=== PATIENT | female | born 1965 | race Caucasian/White ===

== ENCOUNTER 2016-07-23 15:16 | Inpatient (IN) | payer OTHER ==
[~2016-07-23] VITALS: Ht 157.5 cm; Wt 61.5 kg
[~2016-07-23 15:16] MED LIST: ADVAIR 500/501 DISK IH; ADVAIR HFA120 INHALA IH; ALBUTEROL SULF8.5 GM IH; ALBUTEROL1.25 MG/3 IH; ALBUTEROL17 G1 IH; ALBUTEROL2.5 MG/3 M IH; ALLERGY MEDICAT25 M1 PO; ALPRAZOLAM0.25 M2 PO; ALPRAZOLAM1 MG PO; AMBIEN10 MG PO; ATIVAN0.5 MG PO; AZITHROMYCIN500 M1 PO; CATAPRES0.1 MG PO; CLONIDINE HCL0.1 MG PO; CLOPIDOGREL75 MG PO; DEPAKOTE500 MG PO; DRISDOL50000 UNIT PO; DUONEB 2.5-0.5 M3 ML IH; DUONEB3 ML IH; FLEXERIL10 MG PO; FLEXERIL5 MG PO; GABAPENTIN100 MG PO; GABAPENTIN400 MG PO; GABAPENTIN600 MG PO; GRALISE600 MG PO; KEFLEX500 MG PO; KLONOPIN0.5 M1 PO; LEVAQUIN500 MG PO; LEVAQUIN750 MG PO; MEDROL DOSEPAK4 MG PO; MIRTAZAPINE45 MG PO; MUCINEX600 MG PO; NEURONTIN300 MG PO; NEURONTIN400 MG PO; NEURONTIN600 MG PO; NEURONTIN800 MG PO; OXECTA5 MG PO; OXYCODONE HCL5 MG PO; PERCOCET 5/31 TABLET PO; PRAVASTATIN SOD80 MG PO; PREDNISONE10 M1 PO; PREDNISONE10 MG PO; PREDNISONE20 MG PO; PREDNISONE5 MG PO; PREDNISONE50 MG PO; PROAIR HFA8.5 GM IH; PROVENTIL,2.5 MG/3 M IH; REMERON45 MG PO; ROXICODONE5 MG PO; SAVELLA25 MG PO; SEROQUEL50 MG PO; SPIRIVA RESPIMAT4 GM IH; TRAZODONE HCL50 MG PO; TRILEPTAL300 MG PO; TUDORZA PRESS400 MCG IH; TYLENOL EXTRA500 M1 PO; TYLENOL EXTRA500 MG PO; TYLENOL REGULA325 MG PO; VENTOLIN HFA18 GM IH; VITAMIN D1000 INTUN PO; XANAX0.5 MG PO; XANAX1 MG PO; ZITHROMAX Z-PA250 MG PO
[2016-07-23 17:05] LABS: BASOPHIL COUNT 0.1 K/uL (0-0.1); EOSINOPHIL (%) 1.4 % (0-5); EOSINOPHIL COUNT 0.1 K/uL (0-0.3); HEMATOCRIT 40.3 % (36.0-46.0); IMMATURE GRANULOCYTE (%) 0.1 % (0.0-0.7); IMMATURE GRANULOCYTE COUNT 0.1 K/uL; LYMPHOCYTE COUNT 2.7 K/uL (1.0-2.8); MCH 32.9 PG (29.0-34.0); MCV 96.6 FL (83-99); MEAN PLAT.VOLUME 8.4 uM^3 (9.5-12.4); MONOCYTE (%) 9.6 % (3-12); MONOCYTE COUNT 0.7 K/uL (0-0.8); NEUTROPHIL (%) 50.5 % (45-76); NEUTROPHIL COUNT 3.7 K/uL (1.8-6.4); PLATELET COUNT 233 K/uL (156-360); RBC DIS.WIDTH-CV 13.1 % (11.8-14.6); RBC DIS.WIDTH-SD 44.6 % (39-53); RED BLOOD COUNT 4.17 M/uL (3.80-5.20); WHITE BLOOD COUNT 7.2 K/uL (4.1-10.2)
[2016-07-23 17:14] LABS: CHLORIDE 104 mEq/L (99-109); POTASSIUM 3.4 mEq/L (3.7-5.4); SODIUM 137 mEq/L (136-147)
[2016-07-23 17:16] LABS: GLUCOSE 93 mg/dL (70-99)
[2016-07-23 17:17] LABS: ANION GAP 10 MEQ/L (2-14)
[2016-07-23 17:18] LABS: TOTAL BILIRUBIN 0.5 mg/dL (0.0-1.0)
[2016-07-23 17:19] LABS: ALKALINE PHOSPHATASE 86 IU/L (3-129)
[2016-07-23 17:20] LABS: GFR ESTIMATE (CALCULATED) > 59 mL/min/
[2016-07-23 17:21] LABS: UREA NITROGEN (BUN) 12 mg/dL (9-23)
[2016-07-23 17:26] LABS: TROP-I INTERPRETATION NEGATIVE; TROPONIN-I < 0.01 ng/mL (0.0-0.30)
[2016-07-23] MEDS ORDERED: VENTOLIN HFA18 GM IH (19:08)
[2016-07-23] MEDS ORDERED: MIRTAZAPINE45 MG PO (19:09)
[2016-07-23 21:47] VITALS: BP 127/81
[2016-07-24 00:08] VITALS: BP 116/68
[2016-07-24 04:44] VITALS: BP 109/66
[2016-07-24 08:00] VITALS: BP 130/75
[2016-07-24 11:44] LABS: METH RESISTANT S AUREUS PCR NEGATIVE (NEGATIVE)
[2016-07-24 11:48] LABS: PROBE CHECK PASS; SPECIMEN PROCESSING CONTROL PASS
[2016-07-24 12:00] VITALS: BP 122/63
[2016-07-24 16:00] VITALS: BP 107/55
[2016-07-24 21:57] VITALS: BP 101/57
[2016-07-25 00:17] VITALS: BP 105/62
[2016-07-25 04:56] VITALS: BP 118/69
[2016-07-25 08:12] VITALS: BP 112/60
[2016-07-25 12:00] VITALS: BP 122/59
[2016-07-25 15:58] VITALS: BP 104/61
[2016-07-25 20:02] VITALS: BP 121/61
[2016-07-26 05:55] VITALS: BP 95/60
[2016-07-26 08:00] VITALS: BP 107/81
[2016-07-26 11:15] VITALS: BP 100/57
[2016-07-26 14:17] VITALS: BP 123/84
[2016-07-26 23:59] VITALS: BP 106/62
[2016-07-27 07:09] LABS: HEMATOCRIT 43.6 % (36.0-46.0); MCH 32.6 PG (29.0-34.0); MCHC 32.8 G/DL (30.0-36.0); MCV 99.5 FL (83-99); PLATELET COUNT 257 K/uL (156-360); RBC DIS.WIDTH-SD 47.3 % (39-53); RED BLOOD COUNT 4.38 M/uL (3.80-5.20); WHITE BLOOD COUNT 9.5 K/uL (4.1-10.2)
[2016-07-27 07:27] LABS: ANION GAP 6 MEQ/L (2-14); CHLORIDE 107 MEQ/L (99-109); GFR ESTIMATE (CALCULATED) > 59 mL/min/; GLUCOSE 137 mg/dL (70-99); MAGNESIUM 2.3 mg/dl (1.3-2.7); SAMPLE HEMOLYSIS CHECK 0; SAMPLE ICTERIC CHECK 0; SAMPLE LIPEMIA CHECK 0; SODIUM 140 MEQ/L (136-147)
[2016-07-27 07:30] LABS: POTASSIUM 4.1 MEQ/L (3.7-5.4); UREA NITROGEN (BUN) 22 mg/dL (9-23)
[2016-07-27 08:44] VITALS: BP 123/80
[2016-07-27 16:08] VITALS: BP 126/66
[2016-07-28] VITALS: BP 137/88
[2016-07-28 07:58] VITALS: BP 136/89
[2016-07-28 11:32] VITALS: BP 110/67
[2016-07-28] MEDS ORDERED: PREDNISONE10 MG PO (12:51)
[2016-07-28] MEDS ORDERED: SPIRIVA RESPIMAT4 GM IH (12:51)
[2016-07-28] MEDS ORDERED: MORPHINE SULFAT15 M1 PO (12:51)
[2016-07-28] MEDS ORDERED: ADVAIR HFA120 INHALA IH (12:51)
[2016-07-28] MEDS ORDERED: INCRUSE ELLI62.5 MCG IH (14:36)
== END 2016-07-28 16:31 | disposition home health service (06) | DRG 191 ==
LOC: EME 15:16 → EDOF 20:20 → 5WEST 20:20 → EDOF 20:20 → 5WEST 21:35 → 5SOUTH 07-24 12:02 → 5WEST 07-24 12:02 → 5SOUTH 07-26 14:01
PROVIDERS: Emergency Medicine; Hospitalist; Internal Medicine
DX: J44.0 Chronic obstructive pulmonary disease with (acute) lower respiratory infection (principal); J96.10 Chronic respiratory failure, unspecified whether with hypoxia or hypercapnia; J44.1 Chronic obstructive pulmonary disease with (acute) exacerbation; Z91.19 Patient's noncompliance with other medical treatment and regimen; G89.29 Other chronic pain; G40.909 Epilepsy, unspecified, not intractable, without status epilepticus; F11.20 Opioid dependence, uncomplicated; F17.210 Nicotine dependence, cigarettes, uncomplicated; F41.9 Anxiety disorder, unspecified; F32.9 Major depressive disorder, single episode, unspecified; Z86.73 Personal history of transient ischemic attack (TIA), and cerebral infarction without residual deficits; J20.9 Acute bronchitis, unspecified; E87.6 Hypokalemia; Z59.0 Homelessness
CPT/HCPCS: 71010; 80048; 80053; 83735; 83880; 84484; 85025; 85027; 87641; 93005; 94640; 94640 76; 94644; 94799; 99202; 99281; 99285; G0378; J1644; J2920; J2930; J7512; J7644

== ENCOUNTER 2016-09-26 09:36 | Emergency (ER) | payer OTHER ==
[~2016-09-26] VITALS: Ht 157.5 cm; Wt 68.1 kg
[~2016-09-26 09:36] MED LIST changes: +INCRUSE ELLI62.5 MCG IH; +MORPHINE SULFAT15 M1 PO
[2016-09-26 10:20] LABS: HEMATOCRIT 44.8 % (36.0-46.0); MCH 31.5 PG (29.0-34.0); MCHC 32.6 G/DL (30.0-36.0); MCV 96.6 FL (83-99); MEAN PLAT.VOLUME 8.2 uM^3 (9.5-12.4); PLATELET COUNT 240 K/uL (156-360); RED BLOOD COUNT 4.64 M/uL (3.80-5.20); WHITE BLOOD COUNT 7.2 K/uL (4.1-10.2)
[2016-09-26 10:28] LABS: CHLORIDE 103 mEq/L (99-109); POTASSIUM 3.9 mEq/L (3.7-5.4); SODIUM 140 mEq/L (136-147)
[2016-09-26 10:30] LABS: GLUCOSE 100 mg/dL (70-99)
[2016-09-26 10:31] LABS: ANION GAP 11 MEQ/L (2-14)
[2016-09-26 10:34] LABS: GFR ESTIMATE (CALCULATED) > 59 mL/min/
[2016-09-26 10:35] LABS: UREA NITROGEN (BUN) 10 mg/dL (9-23)
[2016-09-26] MEDS ORDERED: PREDNISONE50 MG PO (11:08)
[2016-09-26] MEDS ORDERED: ZITHROMAX Z-PA250 MG PO (11:08)
[2016-09-26] MEDS ORDERED: PROVENTIL HFA6.7 GM IH (11:09)
[2016-09-26 12:02] VITALS: BP 132/76
== END 2016-09-26 12:04 | disposition home or self-care (01) ==
LOC: EME → EDBD 09:36 → EME 09:36
PROVIDERS: Emergency Medicine
DX: J44.1 Chronic obstructive pulmonary disease with (acute) exacerbation (principal); J40 Bronchitis, not specified as acute or chronic; F17.200 Nicotine dependence, unspecified, uncomplicated; J45.909 Unspecified asthma, uncomplicated; Z87.442 Personal history of urinary calculi; Z86.73 Personal history of transient ischemic attack (TIA), and cerebral infarction without residual deficits; Z85.41 Personal history of malignant neoplasm of cervix uteri; Z88.2 Allergy status to sulfonamides; Z88.6 Allergy status to analgesic agent; Z88.5 Allergy status to narcotic agent; Z88.8 Allergy status to other drugs, medicaments and biological substances
CPT/HCPCS: 71020; 80048; 85027; 93005; 94640; 99281; 99284; J2930; J7644

== ENCOUNTER 2016-11-17 08:35 | Inpatient (IN) | payer OTHER ==
[~2016-11-17] VITALS: Ht 162.6 cm; Wt 68.3 kg
[~2016-11-17 08:35] MED LIST changes: +PROVENTIL HFA6.7 GM IH
[2016-11-17 09:02] LABS: BASOPHIL COUNT 0.1 K/uL (0-0.1); EOSINOPHIL (%) 0.3 % (0-5); HEMATOCRIT 45.1 % (36.0-46.0); IMMATURE GRANULOCYTE (%) 0.3 % (0.0-0.7); INSTRUMENT ABS NEUTROPHIL CT 4.6 K/uL; LYMPHOCYTE COUNT 3.5 K/uL (1.0-2.8); MCH 31.7 PG (29.0-34.0); MCHC 33.9 G/DL (30.0-36.0); MCV 93.6 FL (83-99); MEAN PLAT.VOLUME 8.4 uM^3 (9.5-12.4); MONOCYTE (%) 9.1 % (3-12); MONOCYTE COUNT 0.8 K/uL (0-0.8); NEUTROPHIL (%) 51.1 % (45-76); NEUTROPHIL COUNT 4.6 K/uL (1.8-6.4); PLATELET COUNT 307 K/uL (156-360); RBC DIS.WIDTH-CV 12.6 % (11.8-14.6); RBC DIS.WIDTH-SD 43.5 % (39-53); RED BLOOD COUNT 4.82 M/uL (3.80-5.20); WHITE BLOOD COUNT 9.1 K/uL (4.1-10.2)
[2016-11-17 09:12] LABS: PTT 23.6 (25-32)
[2016-11-17 09:14] LABS: CHLORIDE 95 mEq/L (99-109); POTASSIUM 4.2 mEq/L (3.7-5.4); SODIUM 137 mEq/L (136-147)
[2016-11-17 09:16] LABS: GLUCOSE 137 mg/dL (70-99)
[2016-11-17 09:17] LABS: ANION GAP 21 MEQ/L (2-14)
[2016-11-17 09:19] LABS: GFR ESTIMATE (CALCULATED) > 59 mL/min/
[2016-11-17 09:20] LABS: UREA NITROGEN (BUN) 12 mg/dL (9-23)
[2016-11-17 09:24] LABS: TROP-I INTERPRETATION NEGATIVE; TROPONIN-I 0.02 ng/mL (0.0-0.30)
[2016-11-17 14:49] LABS: METH RESISTANT S AUREUS PCR NEGATIVE (NEGATIVE); PROBE CHECK PASS; SPECIMEN PROCESSING CONTROL PASS
[2016-11-17 15:15] VITALS: BP 127/88
[2016-11-17 16:08] LABS: TROP-I INTERPRETATION NEGATIVE; TROPONIN-I < 0.01 ng/mL (0.0-0.30)
[2016-11-17 19:10] VITALS: BP 121/64
[2016-11-17 22:07] LABS: TROP-I INTERPRETATION NEGATIVE; TROPONIN-I < 0.01 ng/mL (0.0-0.30)
[2016-11-17 23:29] VITALS: BP 132/58
[2016-11-18 03:15] VITALS: BP 121/67
[2016-11-18 07:19] VITALS: BP 114/72
[2016-11-18 11:10] VITALS: BP 119/72
[2016-11-18 15:25] VITALS: BP 121/94
[2016-11-18 19:23] VITALS: BP 109/74
[2016-11-18 23:25] VITALS: BP 115/72
[2016-11-19 03:25] VITALS: BP 124/76
[2016-11-19 08:34] VITALS: BP 130/78
[2016-11-19 12:27] VITALS: BP 116/77
[2016-11-19 17:06] VITALS: BP 130/96
[2016-11-19 19:22] VITALS: BP 136/87
[2016-11-20] VITALS (7 sets, daily range): BP systolic 113–135; BP diastolic 71–100
[2016-11-21 03:27] VITALS: BP 129/81
[2016-11-21 05:26] LABS: EOSINOPHIL (%) 0 % (0-5); HEMATOCRIT 43.1 % (36.0-46.0); IMMATURE GRANULOCYTE (%) 1.6 % (0.0-0.7); IMMATURE GRANULOCYTE COUNT 0.1 K/uL; INSTRUMENT ABS NEUTROPHIL CT 7.1 K/uL; LYMPHOCYTE COUNT 0.7 K/uL (1.0-2.8); MCH 32.3 PG (29.0-34.0); MCHC 32.9 G/DL (30.0-36.0); MONOCYTE (%) 5.1 % (3-12); MONOCYTE COUNT 0.4 K/uL (0-0.8); NEUTROPHIL (%) 85.4 % (45-76); NEUTROPHIL COUNT 7.1 K/uL (1.8-6.4); RBC DIS.WIDTH-CV 12.6 % (11.8-14.6); RBC DIS.WIDTH-SD 45.5 % (39-53); WHITE BLOOD COUNT 8.4 K/uL (4.1-10.2)
[2016-11-21 05:44] LABS: ANION GAP 8 MEQ/L (2-14); CHLORIDE 100 MEQ/L (99-109); GFR ESTIMATE (CALCULATED) > 59 mL/min/; GLUCOSE 169 mg/dL (70-99); POTASSIUM 4.6 MEQ/L (3.7-5.4); SAMPLE HEMOLYSIS CHECK 2; SAMPLE ICTERIC CHECK 0; SAMPLE LIPEMIA CHECK 0; SODIUM 137 MEQ/L (136-147)
[2016-11-21 05:49] LABS: UREA NITROGEN (BUN) 21 mg/dL (9-23)
[2016-11-21 06:51] LABS: PLAT.SUFFICIENCY ADEQUATE
[2016-11-21 07:03] VITALS: BP 138/98
[2016-11-21 07:22] LABS: PLATELET COUNT 157 K/uL (156-360)
[2016-11-21 10:35] VITALS: BP 134/77
[2016-11-21 15:00] VITALS: BP 125/76
[2016-11-21 23:58] VITALS: BP 123/86
[2016-11-22 07:11] VITALS: BP 133/86
[2016-11-22 07:45] LABS: EOSINOPHIL (%) 0 % (0-5); HEMATOCRIT 42.9 % (36.0-46.0); IMMATURE GRANULOCYTE (%) 4.2 % (0.0-0.7); IMMATURE GRANULOCYTE COUNT 0.4 K/uL; INSTRUMENT ABS NEUTROPHIL CT 6.8 K/uL; LYMPHOCYTE COUNT 1.1 K/uL (1.0-2.8); MCH 31.5 PG (29.0-34.0); MCHC 32.6 G/DL (30.0-36.0); MCV 96.6 FL (83-99); MONOCYTE (%) 7.9 % (3-12); MONOCYTE COUNT 0.7 K/uL (0-0.8); NEUTROPHIL (%) 75.3 % (45-76); NEUTROPHIL COUNT 6.8 K/uL (1.8-6.4); PLATELET COUNT 186 K/uL (156-360); RBC DIS.WIDTH-CV 12.6 % (11.8-14.6); RBC DIS.WIDTH-SD 45.1 % (39-53); RED BLOOD COUNT 4.44 M/uL (3.80-5.20); WHITE BLOOD COUNT 9.1 K/uL (4.1-10.2)
[2016-11-22 08:43] LABS: ANION GAP 8 MEQ/L (2-14); CHLORIDE 98 MEQ/L (99-109); GFR ESTIMATE (CALCULATED) > 59 mL/min/; GLUCOSE 114 mg/dL (70-99); POTASSIUM 4.4 MEQ/L (3.7-5.4); SAMPLE HEMOLYSIS CHECK 0; SAMPLE ICTERIC CHECK 0; SAMPLE LIPEMIA CHECK 0; SODIUM 136 MEQ/L (136-147); UREA NITROGEN (BUN) 19 mg/dL (9-23)
[2016-11-22 15:36] VITALS: BP 136/90
[2016-11-22 23:15] VITALS: BP 139/81
[2016-11-23 07:40] VITALS: BP 125/82
[2016-11-23] MEDS ORDERED: AMOX TR-K CLV1 EAC4 PO (11:10)
[2016-11-23] MEDS ORDERED: GABAPENTIN600 MG PO (11:10)
[2016-11-23] MEDS ORDERED: ALPRAZOLAM0.5 MG PO (11:10)
[2016-11-23] MEDS ORDERED: CITALOPRAM HBR10 MG PO (11:10)
[2016-11-23] MEDS ORDERED: PREDNISONE20 MG PO (11:10)
== END 2016-11-23 14:29 | disposition home or self-care (01) | DRG 190 ==
LOC: EME → EDBD 08:35 → EDOF 10:10 → 5EAST 10:10
PROVIDERS: Emergency Medicine; Hospitalist; Internal Medicine
DX: J44.1 Chronic obstructive pulmonary disease with (acute) exacerbation (principal); J96.01 Acute respiratory failure with hypoxia; F11.20 Opioid dependence, uncomplicated; F33.9 Major depressive disorder, recurrent, unspecified; F17.210 Nicotine dependence, cigarettes, uncomplicated; G40.909 Epilepsy, unspecified, not intractable, without status epilepticus; M79.7 Fibromyalgia; G43.909 Migraine, unspecified, not intractable, without status migrainosus; G89.4 Chronic pain syndrome; J45.909 Unspecified asthma, uncomplicated; R00.0 Tachycardia, unspecified; Z91.14 Patient's other noncompliance with medication regimen; Z88.2 Allergy status to sulfonamides; Z71.6 Tobacco abuse counseling; Z87.442 Personal history of urinary calculi; Z87.820 Personal history of traumatic brain injury; Z85.41 Personal history of malignant neoplasm of cervix uteri; Z86.73 Personal history of transient ischemic attack (TIA), and cerebral infarction without residual deficits; Z82.49 Family history of ischemic heart disease and other diseases of the circulatory system; Z83.6 Family history of other diseases of the respiratory system; Z08 Encounter for follow-up examination after completed treatment for malignant neoplasm; Z09 Encounter for follow-up examination after completed treatment for conditions other than malignant neoplasm
CPT/HCPCS: 71010; 80048; 84484; 85025; 85610; 85730; 87641; 93005; 94640; 94640 76; 94799; 99202; 99281; 99285; J0171; J1100; J1650; J2270; J2405; J2930; J3475; J7644

== ENCOUNTER 2016-12-05 12:50 | Inpatient (IN) | payer OTHER ==
[~2016-12-05] VITALS: Ht 157.5 cm; Wt 67.0 kg
[~2016-12-05 12:50] MED LIST changes: +ALPRAZOLAM0.5 MG PO; +AMOX TR-K CLV1 EAC4 PO; +CITALOPRAM HBR10 MG PO
[2016-12-05 13:56] LABS: HEMATOCRIT 42.9 % (36.0-46.0); MCH 31.9 PG (29.0-34.0); MCHC 32.9 G/DL (30.0-36.0); MCV 97.1 FL (83-99); MEAN PLAT.VOLUME 8.5 uM^3 (9.5-12.4); PLATELET COUNT 267 K/uL (156-360); RBC DIS.WIDTH-CV 13.8 % (11.8-14.6); RBC DIS.WIDTH-SD 48.6 % (39-53); RED BLOOD COUNT 4.42 M/uL (3.80-5.20); WHITE BLOOD COUNT 8.7 K/uL (4.1-10.2)
[2016-12-05 13:57] LABS: CHLORIDE 106 mEq/L (99-109); POTASSIUM 4.2 mEq/L (3.7-5.4); SODIUM 140 mEq/L (136-147)
[2016-12-05 13:58] LABS: GLUCOSE 92 mg/dL (70-99)
[2016-12-05 14:00] LABS: ANION GAP 11 MEQ/L (2-14)
[2016-12-05 14:02] LABS: GFR ESTIMATE (CALCULATED) > 59 mL/min/
[2016-12-05 14:03] LABS: UREA NITROGEN (BUN) 11 mg/dL (9-23)
[2016-12-05 14:08] LABS: TROP-I INTERPRETATION NEGATIVE; TROPONIN-I 0.02 ng/mL (0.0-0.30)
[2016-12-05 15:11] LABS: CARBON DIOXIDE (BICARBONATE) 29.8 MEQ/L (20-31)
[2016-12-05] MEDS ORDERED: XANAX1 MG PO (16:08)
[2016-12-05 22:25] VITALS: BP 125/75
[2016-12-06 04:50] VITALS: BP 130/88
[2016-12-06 07:40] VITALS: BP 107/71
[2016-12-06 11:58] VITALS: BP 106/80
[2016-12-06 16:02] VITALS: BP 129/74
[2016-12-06 19:51] VITALS: BP 120/22
[2016-12-06 23:38] VITALS: BP 124/68
[2016-12-07 04:19] VITALS: BP 115/65
[2016-12-07 06:26] LABS: ANION GAP 8 MEQ/L (2-14); CHLORIDE 107 MEQ/L (99-109); GFR ESTIMATE (CALCULATED) > 59 mL/min/; HDL CHOLESTEROL 100 MG/DL (Desirable>=50); LDL CHOLESTEROL 143 mg/dL (Desirable<100); NON-HDL CHOLESTEROL 153 mg/dL (Desirable<160); POTASSIUM 4.7 MEQ/L (3.7-5.4); SAMPLE HEMOLYSIS CHECK 0; SAMPLE ICTERIC CHECK 0; SAMPLE LIPEMIA CHECK 0; SODIUM 141 MEQ/L (136-147); TOTAL CHOLESTEROL 253 mg/dL (Desirable<200); TRIGLYCERIDES 51 MG/DL (Normal: <150); UREA NITROGEN (BUN) 16 mg/dL (9-23)
[2016-12-07 06:30] LABS: GLUCOSE 142 mg/dL (70-99)
[2016-12-07 06:49] LABS: EOSINOPHIL (%) 0 % (0-5); HEMATOCRIT 37.4 % (36.0-46.0); IMMATURE GRANULOCYTE (%) 1.3 % (0.0-0.7); IMMATURE GRANULOCYTE COUNT 0.2 K/uL; INSTRUMENT ABS NEUTROPHIL CT 11.8 K/uL; LYMPHOCYTE COUNT 0.8 K/uL (1.0-2.8); MCH 32.3 PG (29.0-34.0); MCHC 31.8 G/DL (30.0-36.0); MEAN PLAT.VOLUME 8.6 uM^3 (9.5-12.4); MONOCYTE (%) 4.9 % (3-12); MONOCYTE COUNT 0.7 K/uL (0-0.8); NEUTROPHIL (%) 88.1 % (45-76); NEUTROPHIL COUNT 11.8 K/uL (1.8-6.4); PLATELET COUNT 236 K/uL (156-360); RBC DIS.WIDTH-CV 13.9 % (11.8-14.6); RBC DIS.WIDTH-SD 52.2 % (39-53); RED BLOOD COUNT 3.68 M/uL (3.80-5.20)
[2016-12-07 06:57] LABS: MCV 101.6 FL (83-99); WHITE BLOOD COUNT 13.4 K/uL (4.1-10.2)
[2016-12-07 07:59] VITALS: BP 116/74
[2016-12-07 11:52] VITALS: BP 108/67
[2016-12-07 16:01] VITALS: BP 132/77
[2016-12-07 20:01] VITALS: BP 115/75
[2016-12-07 23:43] VITALS: BP 137/78
[2016-12-08 05:20] VITALS: BP 116/70
[2016-12-08 05:58] LABS: EOSINOPHIL (%) 0.1 % (0-5); HEMATOCRIT 39.8 % (36.0-46.0); IMMATURE GRANULOCYTE (%) 0.8 % (0.0-0.7); IMMATURE GRANULOCYTE COUNT 0.1 K/uL; INSTRUMENT ABS NEUTROPHIL CT 7.1 K/uL; LYMPHOCYTE COUNT 2.2 K/uL (1.0-2.8); MCH 32.1 PG (29.0-34.0); MCHC 31.4 G/DL (30.0-36.0); MCV 102.1 FL (83-99); MEAN PLAT.VOLUME 8.6 uM^3 (9.5-12.4); MONOCYTE (%) 7.7 % (3-12); MONOCYTE COUNT 0.8 K/uL (0-0.8); NEUTROPHIL (%) 69.6 % (45-76); NEUTROPHIL COUNT 7.1 K/uL (1.8-6.4); PLATELET COUNT 243 K/uL (156-360); RBC DIS.WIDTH-CV 14.2 % (11.8-14.6); WHITE BLOOD COUNT 10.2 K/uL (4.1-10.2)
[2016-12-08 07:09] LABS: ANION GAP 7 MEQ/L (2-14); CHLORIDE 108 MEQ/L (99-109); GFR ESTIMATE (CALCULATED) > 59 mL/min/; GLUCOSE 131 mg/dL (70-99); POTASSIUM 4.1 MEQ/L (3.7-5.4); SAMPLE HEMOLYSIS CHECK 0; SAMPLE ICTERIC CHECK 0; SAMPLE LIPEMIA CHECK 0; SODIUM 142 MEQ/L (136-147); UREA NITROGEN (BUN) 19 mg/dL (9-23)
[2016-12-08 07:57] VITALS: BP 120/84
[2016-12-08] MEDS ORDERED: GUAIFENESI100 MG/5 M PO (12:12)
[2016-12-08] MEDS ORDERED: ATORVASTATIN CA40 MG PO (12:12)
[2016-12-08] MEDS ORDERED: PREDNISONE20 MG PO (12:12)
[2016-12-08] MEDS ORDERED: SPIRIVA RESPIMAT4 GM IH (12:12)
[2016-12-08] MEDS ORDERED: CEFTIN500 MG PO (12:16)
[2016-12-08] MEDS ORDERED: GABAPENTIN600 MG PO (12:23)
[2016-12-08] MEDS ORDERED: VENTOLIN HFA18 GM IH (12:50)
[2016-12-08] MEDS ORDERED: PROVENTIL,2.5 MG/3 M IH (13:17)
== END 2016-12-08 13:35 | disposition home or self-care (01) | DRG 190 ==
LOC: EME 12:50 → EDOF 16:08 → EME 16:08 → EDOF 18:10 → 5SOUTH 18:10
PROVIDERS: Emergency Medicine; Internal Medicine
DX: J44.1 Chronic obstructive pulmonary disease with (acute) exacerbation (principal); J44.0 Chronic obstructive pulmonary disease with (acute) lower respiratory infection; J96.01 Acute respiratory failure with hypoxia; Z99.81 Dependence on supplemental oxygen; Z86.73 Personal history of transient ischemic attack (TIA), and cerebral infarction without residual deficits; G40.909 Epilepsy, unspecified, not intractable, without status epilepticus; G89.4 Chronic pain syndrome; F41.9 Anxiety disorder, unspecified; F33.9 Major depressive disorder, recurrent, unspecified; F17.210 Nicotine dependence, cigarettes, uncomplicated; J20.9 Acute bronchitis, unspecified; R00.0 Tachycardia, unspecified; G43.909 Migraine, unspecified, not intractable, without status migrainosus; J45.909 Unspecified asthma, uncomplicated; M79.7 Fibromyalgia; Z87.442 Personal history of urinary calculi
CPT/HCPCS: 71020; 80048; 80061; 82803; 83605; 83880; 84484; 85025; 85027; 85379; 87040; 93005; 94640; 94640 76; 94760; 94799; 99202; 99281; 99285; J1100; J1644; J2930; J7030; J7512

== ENCOUNTER 2016-12-21 14:12 | Emergency (ER) | payer OTHER ==
[~2016-12-21] VITALS: Ht 157.5 cm; Wt 69.8 kg
[~2016-12-21 14:12] MED LIST changes: +ATORVASTATIN CA40 MG PO; +CEFTIN500 MG PO; +GUAIFENESI100 MG/5 M PO
[2016-12-21] MEDS ORDERED: GABAPENTIN600 MG PO (16:08)
[2016-12-21 16:38] VITALS: BP 124/87
== END 2016-12-21 16:46 | disposition home or self-care (01) ==
LOC: EME 14:12
DX: R56.9 Unspecified convulsions (principal); Z91.14 Patient's other noncompliance with medication regimen; F17.200 Nicotine dependence, unspecified, uncomplicated; Z87.442 Personal history of urinary calculi; Z86.73 Personal history of transient ischemic attack (TIA), and cerebral infarction without residual deficits
CPT/HCPCS: 99281; 99283

== ENCOUNTER 2016-12-29 06:49 | Emergency (ER) | payer OTHER ==
[~2016-12-29] VITALS: Ht 160 cm; Wt 69.3 kg
[2016-12-29 08:20] LABS: CHLORIDE 107 mEq/L (99-109); POTASSIUM 3.7 mEq/L (3.7-5.4); SODIUM 142 mEq/L (136-147)
[2016-12-29 08:21] LABS: GLUCOSE 109 mg/dL (70-99); WHITE BLOOD COUNT ND K/uL (4.1-10.2)
[2016-12-29 08:22] LABS: HEMATOCRIT ND % (36.0-46.0); MCH ND PG (29.0-34.0); MCHC ND G/DL (30.0-36.0); MCV ND FL (83-99); NRBC (%) ND /100 WBC (0-0); RBC DIS.WIDTH-CV ND % (11.8-14.6); RBC DIS.WIDTH-SD ND % (39-53); RED BLOOD COUNT ND M/uL (3.80-5.20)
[2016-12-29 08:23] LABS: ANION GAP 10 MEQ/L (2-14)
[2016-12-29 08:25] LABS: GFR ESTIMATE (CALCULATED) > 59 mL/min/
[2016-12-29 08:26] LABS: UREA NITROGEN (BUN) 7 mg/dL (9-23)
[2016-12-29 09:09] LABS: BASOPHIL COUNT 0.1 K/uL (0-0.1); EOSINOPHIL (%) 0.9 % (0-5); EOSINOPHIL COUNT 0.1 K/uL (0-0.3); HEMATOCRIT 42.1 % (36.0-46.0); IMMATURE GRANULOCYTE (%) 0.5 % (0.0-0.7); LYMPHOCYTE COUNT 1.1 K/uL (1.0-2.8); MCH 32.3 PG (29.0-34.0); MCHC 33.5 G/DL (30.0-36.0); MEAN PLAT.VOLUME 8.6 uM^3 (9.5-12.4); MONOCYTE (%) 5.5 % (3-12); MONOCYTE COUNT 0.3 K/uL (0-0.8); NEUTROPHIL (%) 72.7 % (45-76); PLATELET COUNT 236 K/uL (156-360); RBC DIS.WIDTH-CV 13.3 % (11.8-14.6); RBC DIS.WIDTH-SD 47.7 % (39-53); RED BLOOD COUNT 4.36 M/uL (3.80-5.20); WHITE BLOOD COUNT 5.5 K/uL (4.1-10.2)
[2016-12-29 09:10] LABS: MCV 96.6 FL (83-99)
[2016-12-29] MEDS ORDERED: ZITHROMAX Z-PA250 MG PO (09:22)
[2016-12-29] MEDS ORDERED: PREDNISONE50 MG PO (09:22)
[2016-12-29 09:56] VITALS: BP 126/90
== END 2016-12-29 09:59 | disposition home or self-care (01) ==
LOC: EME → EDBD 06:49 → EME 09:59
PROVIDERS: Emergency Medicine
DX: J44.1 Chronic obstructive pulmonary disease with (acute) exacerbation (principal); M79.7 Fibromyalgia; F31.9 Bipolar disorder, unspecified; B19.10 Unspecified viral hepatitis B without hepatic coma; Z87.442 Personal history of urinary calculi; Z86.73 Personal history of transient ischemic attack (TIA), and cerebral infarction without residual deficits; Z85.41 Personal history of malignant neoplasm of cervix uteri; F17.200 Nicotine dependence, unspecified, uncomplicated
CPT/HCPCS: 71010; 80048; 85025; 85025 91; 94640; 99281; 99285; J2930; J7644

== ENCOUNTER 2017-01-16 12:31 | Emergency (ER) | payer OTHER ==
[~2017-01-16] VITALS: Ht 157.5 cm; Wt 69.0 kg
[2017-01-16 13:00] LABS: HEMATOCRIT 41.9 % (36.0-46.0); MCH 32.5 PG (29.0-34.0); MCHC 32.9 G/DL (30.0-36.0); MCV 98.8 FL (83-99); MEAN PLAT.VOLUME 8.4 uM^3 (9.5-12.4); PLATELET COUNT 209 K/uL (156-360); RBC DIS.WIDTH-CV 14.2 % (11.8-14.6); RBC DIS.WIDTH-SD 51.3 % (39-53); RED BLOOD COUNT 4.24 M/uL (3.80-5.20); WHITE BLOOD COUNT 6.1 K/uL (4.1-10.2)
[2017-01-16 13:16] LABS: CHLORIDE 98 mEq/L (99-109); POTASSIUM 4.4 mEq/L (3.7-5.4); SODIUM 136 mEq/L (136-147)
[2017-01-16 13:18] LABS: GLUCOSE 93 mg/dL (70-99)
[2017-01-16 13:19] LABS: ANION GAP 10 MEQ/L (2-14)
[2017-01-16 13:22] LABS: GFR ESTIMATE (CALCULATED) > 59 mL/min/
[2017-01-16 13:23] LABS: UREA NITROGEN (BUN) 9 mg/dL (9-23)
[2017-01-16 13:24] LABS: TROP-I INTERPRETATION NEGATIVE; TROPONIN-I < 0.01 ng/mL (0.0-0.30)
[2017-01-16 13:30] LABS: QUANTITATIVE HCG < 4.0 MIU/ML
[2017-01-16] MEDS ORDERED: PREDNISONE50 MG PO (13:36)
[2017-01-16] MEDS ORDERED: ZITHROMAX Z-PA250 MG PO (13:36)
[2017-01-16 14:08] VITALS: BP 113/84
== END 2017-01-16 14:17 | disposition home or self-care (01) ==
LOC: EME 12:31
PROVIDERS: Emergency Medicine
DX: J44.1 Chronic obstructive pulmonary disease with (acute) exacerbation (principal); J45.909 Unspecified asthma, uncomplicated; Z87.891 Personal history of nicotine dependence; Z86.73 Personal history of transient ischemic attack (TIA), and cerebral infarction without residual deficits
CPT/HCPCS: 71010; 80048; 84484; 84702; 85027; 94640; 99202; 99281; 99285; J7512; J7644

== ENCOUNTER 2017-04-29 12:21 | Emergency (ER) | payer OTHER ==
[~2017-04-29] VITALS: Ht 160 cm; Wt 62.2 kg
[2017-04-29 13:20] LABS: BASOPHIL COUNT 0.1 K/uL (0-0.1); EOSINOPHIL (%) 1.6 % (0-5); EOSINOPHIL COUNT 0.1 K/uL (0-0.3); HEMATOCRIT 44.1 % (36.0-46.0); IMMATURE GRANULOCYTE (%) 0.5 % (0.0-0.7); INSTRUMENT ABS NEUTROPHIL CT 3.6 K/uL; LYMPHOCYTE COUNT 1.7 K/uL (1.0-2.8); MCH 31.1 PG (29.0-34.0); MCHC 32.7 G/DL (30.0-36.0); MCV 95.2 FL (83-99); MEAN PLAT.VOLUME 8.7 uM^3 (9.5-12.4); MONOCYTE (%) 11.5 % (3-12); MONOCYTE COUNT 0.7 K/uL (0-0.8); NEUTROPHIL (%) 58.3 % (45-76); NEUTROPHIL COUNT 3.6 K/uL (1.8-6.4); PLATELET COUNT 192 K/uL (156-360); RBC DIS.WIDTH-CV 13.3 % (11.8-14.6); RED BLOOD COUNT 4.63 M/uL (3.80-5.20); WHITE BLOOD COUNT 6.2 K/uL (4.1-10.2)
[2017-04-29 13:31] LABS: CHLORIDE 101 mEq/L (99-109); POTASSIUM 4.3 mEq/L (3.7-5.4); SODIUM 137 mEq/L (136-147)
[2017-04-29 13:33] LABS: GLUCOSE 99 mg/dL (70-99)
[2017-04-29 13:35] LABS: ANION GAP 12 MEQ/L (2-14)
[2017-04-29 13:37] LABS: GFR ESTIMATE (CALCULATED) > 59 mL/min/
[2017-04-29 13:38] LABS: UREA NITROGEN (BUN) 16 mg/dL (9-23)
[2017-04-29 13:41] LABS: TROP-I INTERPRETATION NEGATIVE; TROPONIN-I < 0.01 ng/mL (0.0-0.30)
[2017-04-29] MEDS ORDERED: VENTOLIN HFA18 GM IH (14:40)
[2017-04-29] MEDS ORDERED: PREDNISONE20 MG PO (14:40)
[2017-04-29 15:17] VITALS: BP 126/82
== END 2017-04-29 15:18 | disposition home or self-care (01) ==
LOC: EME 12:21
PROVIDERS: Personal Emergency Response Attendant
DX: J20.9 Acute bronchitis, unspecified (principal); J44.9 Chronic obstructive pulmonary disease, unspecified; Z99.81 Dependence on supplemental oxygen; Z85.41 Personal history of malignant neoplasm of cervix uteri; F17.200 Nicotine dependence, unspecified, uncomplicated
CPT/HCPCS: 71010; 80048; 84484; 85025; 93005; 99281; 99284; J7512; J7644

== ENCOUNTER 2017-06-08 12:37 | Emergency (ER) | payer OTHER ==
[~2017-06-08] VITALS: Ht 157.5 cm; Wt 68.1 kg
[2017-06-08] MEDS ORDERED: REMERON15 M2 PO (13:58)
[2017-06-08] MEDS ORDERED: ADVAIR HFA120 INHALA IH (14:00)
[2017-06-08 14:38] LABS: BASOPHIL COUNT 0.1 K/uL (0-0.1); EOSINOPHIL (%) 3.6 % (0-5); EOSINOPHIL COUNT 0.3 K/uL (0-0.3); HEMATOCRIT 43.7 % (36.0-46.0); IMMATURE GRANULOCYTE (%) 0.1 % (0.0-0.7); INSTRUMENT ABS NEUTROPHIL CT 3.6 K/uL; LYMPHOCYTE COUNT 2.1 K/uL (1.0-2.8); MCH 31.6 PG (29.0-34.0); MCHC 31.8 G/DL (30.0-36.0); MCV 99.3 FL (83-99); MEAN PLAT.VOLUME 8.6 uM^3 (9.5-12.4); MONOCYTE (%) 12.2 % (3-12); MONOCYTE COUNT 0.8 K/uL (0-0.8); NEUTROPHIL (%) 52.5 % (45-76); NEUTROPHIL COUNT 3.6 K/uL (1.8-6.4); PLATELET COUNT 256 K/uL (156-360); RBC DIS.WIDTH-SD 51.8 % (39-53); WHITE BLOOD COUNT 6.9 K/uL (4.1-10.2)
[2017-06-08 14:46] LABS: CHLORIDE 100 mEq/L (99-109); POTASSIUM 4.7 mEq/L (3.7-5.4); SODIUM 133 mEq/L (136-147)
[2017-06-08 14:48] LABS: GLUCOSE 96 mg/dL (70-99)
[2017-06-08 14:49] LABS: ANION GAP 7 MEQ/L (2-14)
[2017-06-08 14:52] LABS: GFR ESTIMATE (CALCULATED) 50 mL/min/
[2017-06-08 14:53] LABS: UREA NITROGEN (BUN) 17 mg/dL (9-23)
[2017-06-08 14:54] LABS: URIC ACID 4.3 mg/dL (3.1-9.2)
[2017-06-08 16:11] VITALS: BP 134/65
== END 2017-06-08 16:12 | disposition home or self-care (01) ==
LOC: EME 12:37
PROVIDERS: Physician Assistant
DX: S93.401A Sprain of unspecified ligament of right ankle, initial encounter (principal); X58.XXXA Exposure to other specified factors, initial encounter; G62.9 Polyneuropathy, unspecified; J45.909 Unspecified asthma, uncomplicated; Z99.81 Dependence on supplemental oxygen; Z86.73 Personal history of transient ischemic attack (TIA), and cerebral infarction without residual deficits; Z85.41 Personal history of malignant neoplasm of cervix uteri; F17.200 Nicotine dependence, unspecified, uncomplicated
CPT/HCPCS: 73610; 80048; 84550; 85025; 93971; 99281; 99284; J1100

== ENCOUNTER 2017-07-09 11:54 | Inpatient (IN) | payer OTHER ==
[~2017-07-09] VITALS: Ht 157.5 cm; Wt 63.9 kg
[~2017-07-09 11:54] MED LIST changes: +REMERON15 M2 PO
[2017-07-09 12:38] LABS: BASOPHIL (%) 0.7 % (0-1); BASOPHIL COUNT 0.1 K/uL (0-0.1); EOSINOPHIL (%) 0.2 % (0-5); HEMATOCRIT 41.5 % (36.0-46.0); HEMOGLOBIN 13.4 G/DL (11.9-15.5); IMMATURE GRANULOCYTE (%) 0.9 % (0.0-0.7); LYMPHOCYTE (%) 9.4 % (15-42); LYMPHOCYTE COUNT 1.1 K/uL (1.0-2.8); MCHC 32.3 G/DL (30.0-36.0); MONOCYTE (%) 12.1 % (3-12); MONOCYTE COUNT 1.4 K/uL (0-0.8); NEUTROPHIL (%) 76.7 % (45-76); NEUTROPHIL COUNT 8.9 K/uL (1.8-6.4); PLATELET COUNT 215 K/uL (156-360); RBC DIS.WIDTH-CV 13.7 % (11.8-14.6); RED BLOOD COUNT 4.19 M/uL (3.80-5.20); WHITE BLOOD COUNT 11.7 K/uL (4.1-10.2)
[2017-07-09 12:44] LABS: CHLORIDE 96 mEq/L (99-109); POTASSIUM 5.5 mEq/L (3.7-5.4); PTT 24.5 SEC (25-37); SODIUM 132 mEq/L (136-147)
[2017-07-09 12:46] LABS: GLUCOSE 161 mg/dL (70-99)
[2017-07-09 12:49] LABS: CREATININE 0.8 mg/dL (0.6-1.3); GFR ESTIMATE (CALCULATED) > 59 mL/min/
[2017-07-09 12:50] LABS: UREA NITROGEN (BUN) 16 mg/dL (9-23)
[2017-07-09 12:51] LABS: BICARBONATE 30.8 mEq/L (22-26); CARBOXY HGB 2.1 % (0-5); METHEMOGLOBIN 0.8 % (0-1.5); PO2 97 mm Hg (80-100)
[2017-07-09 12:52] LABS: COMMENTS - BLOOD GASES A+C+; DEVICE VENTURI; FI02 50 %; O2 FLOW 12 L/MIN; PCO2 67 mm Hg (35-45); SITE RR; pH 7.27 (7.35-7.45)
[2017-07-09 12:53] LABS: TOTAL RESP RATE 18 resp/min
[2017-07-09 12:55] LABS: TROP-I INTERPRETATION NEGATIVE; TROPONIN-I < 0.01 ng/mL (0.0-0.30)
[2017-07-09 14:47] LABS: BASE EXCESS 2.8 mEq/L (-3 to +3); BICARBONATE 31.3 mEq/L (22-26); CARBOXY HGB 1.9 % (0-5); METHEMOGLOBIN 0.7 % (0-1.5); PCO2 65 mm Hg (35-45); PO2 125 mm Hg (80-100); pH 7.29 (7.35-7.45)
[2017-07-09 14:48] LABS: COMMENTS - BLOOD GASES A+C+; DEVICE VENTURI; FI02 40 %; O2 FLOW 8 L/MIN; SITE LR; TOTAL RESP RATE 21 resp/min
[2017-07-09] MEDS ORDERED: DUONEB 2.5-0.5 M3 ML AEROSOL (15:36)
[2017-07-09 16:30] VITALS: BP 126/84
[2017-07-09 16:56] VITALS: BP 122/85
[2017-07-09 18:00] VITALS: BP 126/81
[2017-07-09 20:00] VITALS: BP 123/88
[2017-07-09 22:00] VITALS: BP 129/80
[2017-07-10] VITALS (9 sets, daily range): BP systolic 111–133; BP diastolic 79–93
[2017-07-11 05:59] LABS: HEMATOCRIT 43.6 % (36.0-46.0); HEMOGLOBIN 13.6 G/DL (11.9-15.5); MCH 32.8 PG (29.0-34.0); MCHC 31.2 G/DL (30.0-36.0); RBC DIS.WIDTH-CV 13.7 % (11.8-14.6); RBC DIS.WIDTH-SD 52.5 % (39-53); RED BLOOD COUNT 4.15 M/uL (3.80-5.20); WHITE BLOOD COUNT 10.9 K/uL (4.1-10.2)
[2017-07-11 06:02] LABS: MCV 105.1 FL (83-99); PLATELET COUNT 282 K/uL (156-360)
[2017-07-11 06:36] LABS: CHLORIDE 97 MEQ/L (99-109); MAGNESIUM 2.4 mg/dl (1.3-2.7); POTASSIUM 5.7 MEQ/L (3.7-5.4); SODIUM 137 MEQ/L (136-147)
[2017-07-11 06:41] LABS: CREATININE 0.8 MG/DL (0.6-1.3); GFR ESTIMATE (CALCULATED) > 59 mL/min/; GLUCOSE 153 mg/dL (70-99)
[2017-07-11 06:49] LABS: UREA NITROGEN (BUN) 26 mg/dL (9-23)
[2017-07-11 07:46] VITALS: BP 142/80
[2017-07-11 12:09] VITALS: BP 128/83
[2017-07-11 16:00] VITALS: BP 121/69
[2017-07-11 23:13] VITALS: BP 114/71
[2017-07-12 05:55] VITALS: BP 130/76
[2017-07-12 08:10] VITALS: BP 147/76
[2017-07-12 11:52] LABS: APPEARANCE CLEAR ((CLEAR)); BILIRUBIN NEGATIVE; BLOOD NEGATIVE; COLOR YELLOW ((YELLOW)); GLUCOSE (STRIP) NEGATIVE; KETONES NEGATIVE; LEUKOCYTES NEGATIVE; NITRITE NEGATIVE; PROTEIN (STRIP) NEGATIVE; SPECIFIC GRAVITY 1.018 (1.000-1.030); UCUL ADDED? NO; UROBILINOGEN 0.2 MG/DL (0.2-1.0)
[2017-07-12 16:15] VITALS: BP 143/93
[2017-07-12 17:10] LABS: C DIFF TOXIN NEGATIVE (NEGATIVE)
[2017-07-12 22:29] VITALS: BP 153/75
[2017-07-13 08:27] VITALS: BP 152/67
[2017-07-13 09:06] LABS: CHLORIDE 101 MEQ/L (99-109); CREATININE 0.6 MG/DL (0.6-1.3); GFR ESTIMATE (CALCULATED) > 59 mL/min/; UREA NITROGEN (BUN) 18 mg/dL (9-23)
[2017-07-13 09:07] LABS: GLUCOSE 85 mg/dL (70-99); POTASSIUM 3.9 MEQ/L (3.7-5.4); SODIUM 144 MEQ/L (136-147)
[2017-07-13] MEDS ORDERED: LEVOFLOXACIN750 MG PO (11:35)
[2017-07-13] MEDS ORDERED: ADVAIR HFA120 INHALA IH (11:40)
[2017-07-13] MEDS ORDERED: GUAIFENESI100 MG/5 M PO (11:40)
[2017-07-13] MEDS ORDERED: PREDNISONE10 MG PO (11:41)
== END 2017-07-13 12:14 | disposition home or self-care (01) | DRG 189 ==
LOC: EME 11:54 → 4WEST 15:02 → EDOF 15:02 → ENRESERV 15:05 → 4WEST 16:08 → ENRESERV 07-10 11:58 → 5EAST 07-10 16:33
PROVIDERS: Emergency Medicine; Family Medicine; Internal Medicine
DX: J96.21 Acute and chronic respiratory failure with hypoxia (principal); J18.1 Lobar pneumonia, unspecified organism; J44.1 Chronic obstructive pulmonary disease with (acute) exacerbation; E87.2 Acidosis; G43.909 Migraine, unspecified, not intractable, without status migrainosus; J96.22 Acute and chronic respiratory failure with hypercapnia; F41.9 Anxiety disorder, unspecified; F17.210 Nicotine dependence, cigarettes, uncomplicated; F19.10 Other psychoactive substance abuse, uncomplicated; R79.1 Abnormal coagulation profile; J44.0 Chronic obstructive pulmonary disease with (acute) lower respiratory infection; F17.200 Nicotine dependence, unspecified, uncomplicated; R00.0 Tachycardia, unspecified; Z66 Do not resuscitate; E87.5 Hyperkalemia; G40.909 Epilepsy, unspecified, not intractable, without status epilepticus; I80.9 Phlebitis and thrombophlebitis of unspecified site; Z87.820 Personal history of traumatic brain injury; Z91.19 Patient's noncompliance with other medical treatment and regimen; Z86.73 Personal history of transient ischemic attack (TIA), and cerebral infarction without residual deficits; Z88.6 Allergy status to analgesic agent; Z88.5 Allergy status to narcotic agent; Z88.8 Allergy status to other drugs, medicaments and biological substances; Z88.2 Allergy status to sulfonamides; Z99.81 Dependence on supplemental oxygen; Z85.41 Personal history of malignant neoplasm of cervix uteri
CPT/HCPCS: 36600; 71010; 71275; 80048; 81003; 82803; 82948; 83605; 83735; 84484; 85025; 85027; 85379; 85610; 85730; 87040; 87493; 87502; 87641; 93005; 94002; 94003; 94640; 94640 76; 94644; 94799; 99281; 99285; J0456; J0692; J0696; J1100; J1650; J1956; J2930; J3475; J7512; J7644

== ENCOUNTER 2017-08-10 07:40 | Inpatient (IN) | payer OTHER ==
[~2017-08-10] VITALS: Ht 157.5 cm; Wt 68.9 kg
[~2017-08-10 07:40] MED LIST changes: +DUONEB 2.5-0.5 M3 ML AEROSOL; +LEVOFLOXACIN750 MG PO
[2017-08-10 08:37] LABS: BASOPHIL (%) 0.5 % (0-1); EOSINOPHIL (%) 0 % (0-5); HEMATOCRIT 43.8 % (36.0-46.0); HEMOGLOBIN 14.2 G/DL (11.9-15.5); IMMATURE GRANULOCYTE (%) 0.3 % (0.0-0.7); LYMPHOCYTE (%) 7.8 % (15-42); LYMPHOCYTE COUNT 0.5 K/uL (1.0-2.8); MCH 32.1 PG (29.0-34.0); MCHC 32.4 G/DL (30.0-36.0); MCV 99.1 FL (83-99); MONOCYTE (%) 5.5 % (3-12); MONOCYTE COUNT 0.3 K/uL (0-0.8); NEUTROPHIL (%) 85.9 % (45-76); PLATELET COUNT 214 K/uL (156-360); RBC DIS.WIDTH-CV 13.6 % (11.8-14.6); RBC DIS.WIDTH-SD 49.7 % (39-53); RED BLOOD COUNT 4.42 M/uL (3.80-5.20); WHITE BLOOD COUNT 5.8 K/uL (4.1-10.2)
[2017-08-10 08:47] LABS: CHLORIDE 100 mEq/L (99-109); POTASSIUM 4.2 mEq/L (3.7-5.4); SODIUM 136 mEq/L (136-147)
[2017-08-10 08:48] LABS: GLUCOSE 116 mg/dL (70-99)
[2017-08-10 08:52] LABS: CREATININE 0.7 mg/dL (0.6-1.3); GFR ESTIMATE (CALCULATED) > 59 mL/min/
[2017-08-10 08:53] LABS: UREA NITROGEN (BUN) 11 mg/dL (9-23)
[2017-08-10] MEDS ORDERED: TYLENOL EXTRA500 MG PO (14:06)
[2017-08-10] MEDS ORDERED: TYLENOL PM EX-1 EACH PO (14:07)
[2017-08-10 16:14] VITALS: BP 135/83
[2017-08-10 19:09] VITALS: BP 128/75
[2017-08-11] VITALS: BP 149/73
[2017-08-11 04:02] VITALS: BP 150/88
[2017-08-11 07:32] VITALS: BP 140/86
[2017-08-11 12:00] VITALS: BP 159/90
[2017-08-11 16:15] VITALS: BP 170/89
[2017-08-11 19:39] VITALS: BP 184/98
[2017-08-12 00:03] VITALS: BP 143/77
[2017-08-12 04:05] VITALS: BP 135/94
[2017-08-12 07:02] VITALS: BP 130/79
[2017-08-12 11:08] VITALS: BP 117/64
[2017-08-12 15:14] VITALS: BP 137/75
[2017-08-12 19:32] VITALS: BP 146/99
[2017-08-13 00:18] VITALS: BP 148/69
[2017-08-13 07:03] VITALS: BP 166/87
[2017-08-13 15:03] VITALS: BP 164/81
[2017-08-13 23:39] VITALS: BP 160/96
[2017-08-14 08:03] VITALS: BP 163/99
[2017-08-14 11:51] LABS: BASOPHIL (%) 0.2 % (0-1); EOSINOPHIL (%) 0 % (0-5); HEMATOCRIT 47.6 % (36.0-46.0); HEMOGLOBIN 15.5 G/DL (11.9-15.5); IMMATURE GRANULOCYTE (%) 0.7 % (0.0-0.7); LYMPHOCYTE (%) 5.8 % (15-42); LYMPHOCYTE COUNT 0.6 K/uL (1.0-2.8); MCH 32.4 PG (29.0-34.0); MCHC 32.6 G/DL (30.0-36.0); MCV 99.4 FL (83-99); MONOCYTE (%) 7.2 % (3-12); MONOCYTE COUNT 0.8 K/uL (0-0.8); NEUTROPHIL (%) 86.1 % (45-76); NEUTROPHIL COUNT 9.5 K/uL (1.8-6.4); PLATELET COUNT 237 K/uL (156-360); RBC DIS.WIDTH-CV 13.2 % (11.8-14.6); RED BLOOD COUNT 4.79 M/uL (3.80-5.20); WHITE BLOOD COUNT 11.1 K/uL (4.1-10.2)
[2017-08-14 12:15] LABS: CHLORIDE 100 MEQ/L (99-109); CREATININE 0.6 MG/DL (0.6-1.3); GFR ESTIMATE (CALCULATED) > 59 mL/min/; GLUCOSE 150 mg/dL (70-99); POTASSIUM 4.2 MEQ/L (3.7-5.4); SODIUM 141 MEQ/L (136-147); UREA NITROGEN (BUN) 18 mg/dL (9-23)
[2017-08-14 17:04] VITALS: BP 156/92
[2017-08-15 00:20] VITALS: BP 158/107
[2017-08-15 08:44] VITALS: BP 157/96
[2017-08-15] MEDS ORDERED: ADVAIR HFA120 INHALA IH (15:48)
[2017-08-15] MEDS ORDERED: DUONEB 2.5-0.5 M3 ML AEROSOL (15:50)
[2017-08-15] MEDS ORDERED: SPIRIVA RESPIMAT4 GM IH (15:50)
[2017-08-15] MEDS ORDERED: CEFTIN500 MG PO (15:53)
[2017-08-15] MEDS ORDERED: PREDNISONE5 MG PO (15:54)
[2017-08-15] MEDS ORDERED: HYDROCODON-ACE1 EAC7 PO (15:54)
[2017-08-15 16:02] VITALS: BP 152/94
== END 2017-08-15 18:38 | disposition home or self-care (01) | DRG 190 ==
LOC: EME 07:40 → ENRESERV 13:18 → EDOF 13:18 → 5SOUTH 13:18 → ENRESERV 14:33 → 5SOUTH 15:18
PROVIDERS: Emergency Medicine; Internal Medicine
DX: J44.0 Chronic obstructive pulmonary disease with (acute) lower respiratory infection (principal); J40 Bronchitis, not specified as acute or chronic; J44.1 Chronic obstructive pulmonary disease with (acute) exacerbation; J96.21 Acute and chronic respiratory failure with hypoxia; F41.9 Anxiety disorder, unspecified; F17.210 Nicotine dependence, cigarettes, uncomplicated; Z66 Do not resuscitate; G40.909 Epilepsy, unspecified, not intractable, without status epilepticus; F17.200 Nicotine dependence, unspecified, uncomplicated; Z79.899 Other long term (current) drug therapy; Z86.73 Personal history of transient ischemic attack (TIA), and cerebral infarction without residual deficits; Z85.41 Personal history of malignant neoplasm of cervix uteri; Z82.49 Family history of ischemic heart disease and other diseases of the circulatory system; Z91.19 Patient's noncompliance with other medical treatment and regimen; Z99.81 Dependence on supplemental oxygen; Z87.442 Personal history of urinary calculi; W19.XXXA Unspecified fall, initial encounter; Y93.9 Activity, unspecified; S70.12XA Contusion of left thigh, initial encounter; Z88.1 Allergy status to other antibiotic agents; Z88.5 Allergy status to narcotic agent; Z88.2 Allergy status to sulfonamides; Z88.8 Allergy status to other drugs, medicaments and biological substances
CPT/HCPCS: 71045; 80048; 85025; 87502; 93005; 94640; 94640 76; 94668; 94799; 99202; 99281; 99285; J0692; J1644; J2920; J2930; J7512; J7644

== ENCOUNTER 2017-09-03 15:07 | Inpatient (IN) | payer OTHER ==
[~2017-09-03] VITALS: Ht 157.5 cm; Wt 73.3 kg
[~2017-09-03 15:07] MED LIST changes: +HYDROCODON-ACE1 EAC7 PO; +TYLENOL PM EX-1 EACH PO
[2017-09-03 15:58] LABS: BASOPHIL (%) 0.6 % (0-1); EOSINOPHIL (%) 2.2 % (0-5); EOSINOPHIL COUNT 0.1 K/uL (0-0.3); HEMATOCRIT 45.6 % (36.0-46.0); HEMOGLOBIN 14.8 G/DL (11.9-15.5); IMMATURE GRANULOCYTE (%) 0.2 % (0.0-0.7); LYMPHOCYTE (%) 31.7 % (15-42); MCHC 32.5 G/DL (30.0-36.0); MCV 98.5 FL (83-99); MONOCYTE (%) 10.8 % (3-12); MONOCYTE COUNT 0.7 K/uL (0-0.8); NEUTROPHIL (%) 54.5 % (45-76); NEUTROPHIL COUNT 3.5 K/uL (1.8-6.4); PLATELET COUNT 262 K/uL (156-360); RBC DIS.WIDTH-CV 13.6 % (11.8-14.6); RBC DIS.WIDTH-SD 49.2 % (39-53); RED BLOOD COUNT 4.63 M/uL (3.80-5.20); WHITE BLOOD COUNT 6.4 K/uL (4.1-10.2)
[2017-09-03 16:07] LABS: INTER. NORMALIZED RATIO 0.9
[2017-09-03 16:14] LABS: CHLORIDE 101 mEq/L (99-109); POTASSIUM 4.6 mEq/L (3.7-5.4); SODIUM 141 mEq/L (136-147)
[2017-09-03 16:15] LABS: GLUCOSE 89 mg/dL (70-99)
[2017-09-03 16:19] LABS: CREATININE 0.8 mg/dL (0.6-1.3); GFR ESTIMATE (CALCULATED) > 59 mL/min/
[2017-09-03 16:20] LABS: UREA NITROGEN (BUN) 11 mg/dL (9-23)
[2017-09-03 16:21] LABS: TROP-I INTERPRETATION NEGATIVE; TROPONIN-I < 0.01 ng/mL (0.0-0.30)
[2017-09-03] MEDS ORDERED: MIRTAZAPINE30 MG PO (18:28)
[2017-09-03 22:19] LABS: HDL CHOLESTEROL 121 MG/DL (Desirable>=50); LDL CHOLESTEROL 127 mg/dL (Desirable<100); NON-HDL CHOLESTEROL 141 mg/dL (Desirable<160); TOTAL CHOLESTEROL 262 mg/dL (Desirable<200); TRIGLYCERIDES 68 MG/DL (Normal: <150)
[2017-09-03 22:38] LABS: AMPHETAMINE NEGATIVE (500 ng/mL); BARBITURATES NEGATIVE (200 ng/mL); BENZODIAZEPINES PRESUMPTIVE POSITIVE (150 ng/mL); BUPRENORPHINE NEGATIVE (10 ng/mL); COCAINE NEGATIVE (150 ng/mL); METHADONE PRESUMPTIVE POSITIVE (200 ng/mL); METHAMPHETAMINE NEGATIVE (500 ng/mL); OPIATES (MORPHINE) NEGATIVE (100 ng/mL); OXYCODONE NEGATIVE (100 ng/mL); PHENCYCLIDINE NEGATIVE (25 ng/mL); PROPOXYPHENE NEGATIVE (300 ng/mL); THC CANNABINOIDS NEGATIVE (50 ng/mL); TRICYCLIC ANTIDEPRESSANTS NEGATIVE (300 ng/mL)
[2017-09-03 23:08] LABS: BENZODIAZEPINES, URINE SCREEN POSITIVE (200 ng/mL)
[2017-09-03 23:52] VITALS: BP 102/76
[2017-09-04 04:37] VITALS: BP 118/63
[2017-09-04 07:26] VITALS: BP 126/70
[2017-09-04 11:36] VITALS: BP 121/87
[2017-09-04 11:51] LABS: HEMOGLOBIN A1c (GLYCOHEMOGLOB) 6.1 % (Below 5.7)
[2017-09-04 15:28] VITALS: BP 111/64
[2017-09-04 19:26] VITALS: BP 117/76
[2017-09-04 23:21] VITALS: BP 120/77
[2017-09-05 03:45] VITALS: BP 121/78
[2017-09-05 07:52] VITALS: BP 128/87
[2017-09-05 08:45] LABS: HEMATOCRIT 46.4 % (36.0-46.0); HEMOGLOBIN 14.4 G/DL (11.9-15.5); PLATELET COUNT 256 K/uL (156-360); RBC DIS.WIDTH-CV 13.3 % (11.8-14.6); RBC DIS.WIDTH-SD 48.9 % (39-53); RED BLOOD COUNT 4.64 M/uL (3.80-5.20)
[2017-09-05 11:43] VITALS: BP 110/79
[2017-09-05 16:00] VITALS: BP 117/69
[2017-09-05 19:55] VITALS: BP 115/69
[2017-09-06] VITALS: BP 103/64
[2017-09-06 04:00] VITALS: BP 128/78
[2017-09-06 07:53] VITALS: BP 121/73
[2017-09-06 16:00] VITALS: BP 136/80
[2017-09-06 19:35] VITALS: BP 139/86
[2017-09-06 23:46] VITALS: BP 117/68
[2017-09-07 04:52] VITALS: BP 120/69
[2017-09-07 06:06] LABS: HEMATOCRIT 46.9 % (36.0-46.0); HEMOGLOBIN 14.7 G/DL (11.9-15.5); MCH 31.4 PG (29.0-34.0); MCHC 31.3 G/DL (30.0-36.0); MCV 100.2 FL (83-99); PLATELET COUNT 290 K/uL (156-360); RBC DIS.WIDTH-CV 13.6 % (11.8-14.6); RBC DIS.WIDTH-SD 50.5 % (39-53); RED BLOOD COUNT 4.68 M/uL (3.80-5.20); WHITE BLOOD COUNT 10.6 K/uL (4.1-10.2)
[2017-09-07 07:23] VITALS: BP 134/82
[2017-09-07 10:59] VITALS: BP 128/80; BP 168/75
[2017-09-07] MEDS ORDERED: DUONEB 2.5-0.5 M3 ML AEROSOL (11:42)
[2017-09-07] MEDS ORDERED: PREDNISONE10 MG PO (11:42)
[2017-09-07] MEDS ORDERED: HYDROCODON-ACE1 EAC7 PO (11:42)
[2017-09-07] MEDS ORDERED: SPIRIVA1 INHALATI IH (11:42)
[2017-09-07] MEDS ORDERED: AZITHROMYCIN250 MG1 PO (11:42)
[2017-09-07] MEDS ORDERED: NICOTINE PATCH1 EAC1 TD (11:42)
[2017-09-07 15:18] VITALS: BP 135/86
== END 2017-09-07 15:58 | disposition home health service (06) | DRG 69 ==
LOC: EME 15:07 → 5SOUTH 19:45 → EDOF 19:45 → ENRESERV 19:54 → 5SOUTH 22:23 → ENPENDDIS 09-07 11:47 → 5SOUTH 09-07 15:58
PROVIDERS: Emergency Medicine; Internal Medicine; Physician Assistant
DX: G45.9 Transient cerebral ischemic attack, unspecified (principal); J44.1 Chronic obstructive pulmonary disease with (acute) exacerbation; J44.0 Chronic obstructive pulmonary disease with (acute) lower respiratory infection; J20.9 Acute bronchitis, unspecified; I67.1 Cerebral aneurysm, nonruptured; F41.9 Anxiety disorder, unspecified; G62.9 Polyneuropathy, unspecified; I12.9 Hypertensive chronic kidney disease with stage 1 through stage 4 chronic kidney disease, or unspecified chronic kidney disease; N18.9 Chronic kidney disease, unspecified; M79.7 Fibromyalgia; F11.20 Opioid dependence, uncomplicated; G40.909 Epilepsy, unspecified, not intractable, without status epilepticus; F31.9 Bipolar disorder, unspecified; F17.200 Nicotine dependence, unspecified, uncomplicated; Z66 Do not resuscitate; M79.662 Pain in left lower leg; G43.909 Migraine, unspecified, not intractable, without status migrainosus; S09.90XS Unspecified injury of head, sequela; Z91.14 Patient's other noncompliance with medication regimen; Z85.41 Personal history of malignant neoplasm of cervix uteri; Z88.2 Allergy status to sulfonamides; Z88.5 Allergy status to narcotic agent; Z88.6 Allergy status to analgesic agent; Z86.73 Personal history of transient ischemic attack (TIA), and cerebral infarction without residual deficits
CPT/HCPCS: 70450; 70496; 70498; 70551; 71045; 71250; 73502; 73552; 80048; 80061; 80306 90; 83036; 84484; 84999; 85025; 85027; 85610; 93005; 93971; 94640; 94640 76; 94799; 95819; 99202; 99281; 99285; J1650; J2930; J7512